=== PATIENT | female | born 1960 | race Caucasian/White ===

== ENCOUNTER → 2024-07-29 11:12 | Outpatient (REF) | payer BC, SELFPAY ==
[2024-07-29 13:38] LABS: TSH 3.11 uIU/ml (0.47-4.68)
== END ==
LOC: REG 11:12
PROVIDERS: ATTENDING PHYSICIAN Internal Medicine Endocrinology, Diabetes & Metabolism; FAMILY PHYSICIAN Nurse Practitioner Adult Health
DX: E06.3 Autoimmune thyroiditis (principal)
CPT/HCPCS: 36415; 84443

== ENCOUNTER → 2024-09-30 10:55 | Outpatient (REF) | payer OTHER, SELFPAY ==
[2024-09-30 11:27] LABS: % Basophils 0.8 % (0-2); % Eosinophils 4.4 % (0-6); % Immature Granulocytes 0.2 % (0-0.5); % Lymphocytes 24.9 % (20.5-51.1); % Monocytes 10.6 % (1.7-9.3); % Neutrophils 59.1 % (42.2-75.2); Absolute Eosinophils 0.2 10^3/uL (0-0.7); Absolute Lymphocytes 1.2 10^3/uL (1.2-3.4); Absolute Monocytes 0.5 10^3/uL (0.1-0.6); Absolute Neutrophils 2.9 10^3/uL (1.4-6.5); Hematocrit 40.4 % (37.0-47.0); Hemoglobin 13.4 g/dL (12.0-16.0); Mean Corp Hgb Conc. 33.2 g/dL (33.0-37.0); Mean Corpuscular Hgb 33.5 pg (27.0-31.0); Mean Platelet Volume 8.6 fL (7.4-10.4); Nucleated Red Blood Cells % 0 %; Platelet Count 272 10^3/uL (130-400); Red Cell Dist. Width 12.5 % (11.5-14.5); White Blood Cell Count 4.8 10^3/uL (4.8-10.8)
[2024-09-30 11:54] LABS: ALT (SGPT) 20 U/L (0-35); AST (SGOT) 26 U/L (14-36); Albumin 4.6 g/dl (3.5-5.0); Alkaline Phosphatase 68 U/L (38-126); Blood Urea Nitrogen 11 mg/dl (7-17); Calcium 9.7 mg/dl (8.4-10.2); Carbon Dioxide 29 mmol/L (22-30); Chloride 103 mmol/L (98-107); Glucose 103 mg/dl (70-99); Potassium 4.4 mmol/L (3.5-5.1); Sodium 139 mmol/L (135-145); Total Bilirubin 0.9 mg/dl (0.2-1.3); Total Cholesterol 223 mg/dl (50-199); Total Protein 7.6 g/dl (6.3-8.2); Triglyceride 130 mg/dl (10-149); Very Low Density Lipoprotein 26 mg/dl (0-30); eGFR > 60.00
[2024-09-30 12:15] LABS: TSH Reflex To Free T4 1.32 uIU/ml (0.47-4.68)
[2024-09-30 12:19] LABS: HDL Cholesterol 103 mg/dl; LDL Cholesterol, Calculated 94 mg/dl
== END ==
LOC: REG 10:55
PROVIDERS: ATTENDING PHYSICIAN Physician Assistant
DX: E78.2 Mixed hyperlipidemia (principal); E03.9 Hypothyroidism, unspecified; Z00.01 Encounter for general adult medical examination with abnormal findings
CPT/HCPCS: 36415; 80053; 80061; 84443; 85025

== ENCOUNTER → 2025-08-05 09:42 | Outpatient (REF) | payer OTHER, SELFPAY ==
[2025-08-05 11:47] LABS: TSH 0.98 uIU/ml (0.47-4.68)
== END ==
LOC: REG 09:42
PROVIDERS: ATTENDING PHYSICIAN Internal Medicine Endocrinology, Diabetes & Metabolism; FAMILY PHYSICIAN Family Medicine
DX: E06.3 Autoimmune thyroiditis (principal)
CPT/HCPCS: 36415; 84443